=== PATIENT | female | born 1940 | race Caucasian/White ===

== ENCOUNTER → 2016-09-17 | Outpatient (CLI) | payer MEDICARE, BC ==
[~2016-09-17] VITALS: Ht 167.6 cm; Wt 88.8 kg
[~2016-09-17] MED LIST: COUMADIN 5MG5 MG/TAB PO; K-DUR 10 MEQ T10 MEQ PO; LISINOPRIL10 MG PO; POTASSIUM CHLO10 ME2 PO; TOPROL XL 50MG50 MG PO; TOPROL XL50 MG PO; ULTRAM 50MG TAB50 MG PO; WARFARIN SODIUM5 MG PO; ZESTRIL 10MG10 MG PO; ZOLOFT 100MG100 MG PO; ZOLOFT100 MG PO
[2016-09-17 09:58] VITALS: BP 150/87; PULSE 70
[2016-09-17 10:17] LABS: INR 1.2 (0.8-3.0); PROTHROMBIN TIME 13.1 SECONDS (9.7-12.8)
== END ==
LOC: COL.RAD 09:35
PROVIDERS: Internal Medicine Medical Oncology
DX: E04.1 Nontoxic single thyroid nodule (principal)

== ENCOUNTER 2017-10-23 15:38 | Inpatient (IN) | payer MEDICARE, BC ==
[~2017-10-23] VITALS: Ht 166.4 cm; Wt 90.9 kg
[2017-11-24] MEDS ORDERED: CALCIUM 600/VIT1 CAP PO (13:39)
[2017-11-24] MEDS ORDERED: ASPIRIN E.C. 8181 MG PO (13:39)
[2017-11-24] MEDS ORDERED: LASIX 40MG TABL40 MG PO (13:40)
[2017-11-24] MEDS ORDERED: ZESTRIL 20MG TA20 MG PO (13:40)
[2017-11-24] MEDS ORDERED: DULCOLAX TAB5 MG PO (13:40)
[2017-11-24] MEDS ORDERED: MULTIVITAMIN1 CTB PO (13:41)
[2017-11-24] MEDS ORDERED: NITROSTAT0.4 MG/TAB SL (13:41)
[2017-11-24] MEDS ORDERED: TOPROL XL 50MG50 MG PO (13:41)
[2017-11-24] MEDS ORDERED: K-DUR 10 MEQ T10 MEQ PO (13:42)
[2017-11-24] MEDS ORDERED: VITAMIN B-1000 MCG/T PO (13:44)
[2017-11-25] VITALS (18 sets, daily range): BP systolic 90–145; BP diastolic 32–75; PULSE 60–82; TEMP 97.6–98.1
[2017-11-26] VITALS (7 sets, daily range): BP systolic 82–128; BP diastolic 40–58; PULSE 73–92; TEMP 97.6–99
[2017-11-26] MEDS ORDERED: NORCO 325 MG-7.1 TAB PO (06:14)
[2017-11-26] MEDS ORDERED: CELEBREX 200MG200 MG PO (06:14)
[2017-11-26] MEDS ORDERED: ULTRAM 50MG TAB50 MG PO (06:15)
[2017-11-26 06:38] LABS: HEMATOCRIT 27.2 % (37.0-47.0); HEMOGLOBIN 8.1 g/dl (12.5-16.0)
[2017-11-27 00:12] VITALS: BP 104/49; PULSE 80; TEMP 98.5
[2017-11-27 03:57] VITALS: BP 104/35; PULSE 68; TEMP 98.3
[2017-11-27 06:41] LABS: HEMATOCRIT 27.6 % (37.0-47.0); HEMOGLOBIN 8.3 g/dl (12.5-16.0)
[2017-11-27 07:18] LABS: INR 1.3 (0.8-3.0); PROTHROMBIN TIME 14.3 SECONDS (9.7-12.8)
[2017-11-27 07:33] VITALS: BP 89/43; PULSE 88; TEMP 98.1
[2017-11-27 11:43] VITALS: BP 103/49; PULSE 85; TEMP 98.3
[2017-11-27 16:30] VITALS: BP 117/63; PULSE 71; TEMP 98
[2017-11-27 19:32] VITALS: BP 99/76; PULSE 74; TEMP 98.3
[2017-11-28 00:18] VITALS: BP 122/69; PULSE 71; TEMP 98.5
[2017-11-28 04:17] VITALS: BP 114/51; PULSE 68; TEMP 98.5
[2017-11-28 06:27] LABS: HEMATOCRIT 25.8 % (37.0-47.0)
[2017-11-28 07:25] VITALS: BP 116/75; PULSE 71; TEMP 97.9
== END 2017-11-28 10:15 | disposition home or self-care (01) | DRG 467 ==
LOC: JCC 11-25 07:30
PROVIDERS: Orthopaedic Surgery; Physician Assistant
PROC: 0SRD0J9 Replacement of Left Knee Joint with Synthetic Substitute, Cemented, Open Approach (ICD-10-PCS; 2017-11-25)
PROC: 0SPD0JZ Removal of Synthetic Substitute from Left Knee Joint, Open Approach (ICD-10-PCS; principal; 2017-11-25 10:00)
DX: T84.89XA Other specified complication of internal orthopedic prosthetic devices, implants and grafts, initial encounter (principal); I50.32 Chronic diastolic (congestive) heart failure; T84.84XA Pain due to internal orthopedic prosthetic devices, implants and grafts, initial encounter; I11.0 Hypertensive heart disease with heart failure; I25.10 Atherosclerotic heart disease of native coronary artery without angina pectoris; I48.2 Chronic atrial fibrillation; D64.9 Anemia, unspecified; Z87.891 Personal history of nicotine dependence; Z79.01 Long term (current) use of anticoagulants; Z85.828 Personal history of other malignant neoplasm of skin; Z96.653 Presence of artificial knee joint, bilateral
CPT/HCPCS: A4314; A9284; C1713; C1776; J0171; J1170; J1885; J2250; J2704; J3010; J7120; J7121; P9016

== ENCOUNTER → 2017-11-18 | Outpatient (CLI) | payer MEDICARE, BC | LOC: COL.LAB 10:14 | DX: Z01.812 Encounter for preprocedural laboratory examination (principal) ==

== ENCOUNTER 2018-02-24 16:04 | Inpatient (IN) | payer MEDICARE, BC ==
[~2018-02-24] VITALS: Ht 165.1 cm; Wt 87.4 kg
[~2018-02-24 16:04] MED LIST changes: +ASPIRIN E.C. 8181 MG PO; +CALCIUM 600/VIT1 CAP PO; +CELEBREX 200MG200 MG PO; +DULCOLAX TAB5 MG PO; +LASIX 40MG TABL40 MG PO; +MULTIVITAMIN1 CTB PO; +NITROSTAT0.4 MG/TAB SL; +NORCO 325 MG-7.1 TAB PO; +VITAMIN B-1000 MCG/T PO; +ZESTRIL 20MG TA20 MG PO
[2018-04-28] VITALS (9 sets, daily range): BP systolic 65–127; BP diastolic 35–80; PULSE 53–79; TEMP 97.4–98.4
[2018-04-28 07:36] LABS: INR 1.1 (0.8-3.0); PROTHROMBIN TIME 12.6 SECONDS (9.7-12.8)
[2018-04-29] VITALS (7 sets, daily range): BP systolic 76–137; BP diastolic 36–96; PULSE 68–96; TEMP 97.8–99.9
[2018-04-29] MEDS ORDERED: ULTRAM 50MG TAB50 MG PO (05:45)
[2018-04-29] MEDS ORDERED: CELEBREX 200MG200 MG PO (05:45)
[2018-04-29] MEDS ORDERED: NORCO 325 MG-7.1 TAB PO (05:45)
[2018-04-29 07:24] LABS: HEMATOCRIT 26.8 % (37.0-47.0); HEMOGLOBIN 8.1 g/dl (12.5-16.0)
[2018-04-30 03:07] VITALS: BP 98/41; PULSE 74; TEMP 98.3
[2018-04-30 07:49] VITALS: BP 94/43; PULSE 76; TEMP 97.9
[2018-04-30 08:38] LABS: HEMATOCRIT 26.5 % (37.0-47.0); HEMOGLOBIN 8.2 g/dl (12.5-16.0)
[2018-04-30 08:46] LABS: INR 1.5 (0.8-3.0); PROTHROMBIN TIME 16.6 SECONDS (9.7-12.8)
[2018-04-30 11:17] LABS: BASO % 0.2 % (0.0-2.0); EOS # 0.1 (0.0-0.7); EOS % 1.2 % (0-4.0); GRAN # 4.8 (1.4-6.5); GRAN % 84.3 % (42.2-75.2); LYMPH # 0.3 (1.2-3.4); LYMPH % 4.7 % (20.0-51.0); MEAN CELL VOLUME 78 fl (80.0-100.0); MEAN CORPUSCULAR HGB CONC 31 g/dl (33.0-37.0); MEAN PLATELET VOLUME 11.6 fl (7.4-10.4); MONO # 0.5 (0.1-0.6); MONO % 8.9 % (1.7-9.3); PLATELET COUNT 91 K/mm3 (130-400); RED BLOOD COUNT 3.03 M/mm3 (4.10-5.30); REDCELL DISTRIBUTION WIDTH-CV 17.3 % (11.5-14.5)
[2018-04-30 11:19] VITALS: BP 91/40
[2018-04-30 11:24] LABS: HEMATOCRIT 23.6 % (37.0-47.0); HEMOGLOBIN 7.4 g/dl (12.5-16.0); MEAN CORPUSCULAR HEMOGLOBIN 24 pg (27.0-31.0)
[2018-04-30 11:44] LABS: ALBUMIN 3.4 gm/dL (3.5-5.0); BILIRUBIN UNCONJUGATED 0.4 mg/dL (0.0-1.1); BILIRUBIN,DIRECT 0.3 mg/dL (0.0-0.4); BILIRUBIN,TOTAL 0.7 mg/dL (0.0-1.0); CALCIUM 8.8 mg/dL (8.4-10.2); CREATININE, serum 1.66 mg/dL (0.52-1.25); POTASSIUM 4.6 mmol/L (3.4-5.0)
[2018-04-30 16:47] VITALS: BP 105/44; PULSE 95; TEMP 98.7
[2018-04-30 16:49] LABS: TROPONIN-I < 0.012 ng/mL (0.000-0.034)
[2018-04-30 20:20] VITALS: BP 98/51; PULSE 85; TEMP 98.6
[2018-04-30 23:41] VITALS: BP 96/53; PULSE 80; TEMP 98.6
[2018-05-01 03:36] VITALS: BP 113/50; PULSE 83; TEMP 98.5
[2018-05-01 07:18] LABS: BASO % 0.2 % (0.0-2.0); EOS # 0.2 (0.0-0.7); EOS % 3.3 % (0-4.0); GRAN # 3.9 (1.4-6.5); GRAN % 76.1 % (42.2-75.2); LYMPH # 0.5 (1.2-3.4); MEAN CELL VOLUME 78 fl (80.0-100.0); MEAN CORPUSCULAR HGB CONC 31 g/dl (33.0-37.0); MEAN PLATELET VOLUME 11.7 fl (7.4-10.4); MONO # 0.6 (0.1-0.6); MONO % 10.8 % (1.7-9.3); PLATELET COUNT 105 K/mm3 (130-400); REDCELL DISTRIBUTION WIDTH-CV 17.9 % (11.5-14.5)
[2018-05-01 07:21] VITALS: BP 102/48; PULSE 82; TEMP 98.8
[2018-05-01 07:25] LABS: HEMATOCRIT 24.2 % (37.0-47.0); HEMOGLOBIN 7.6 g/dl (12.5-16.0); MEAN CORPUSCULAR HEMOGLOBIN 25 pg (27.0-31.0)
[2018-05-01 07:27] LABS: ANION GAP 6 mmol/L (7-16); BLOOD UREA NITROGEN 41 mg/dL (7-17); CALCIUM 8.8 mg/dL (8.4-10.2); CARBON DIOXIDE 26 mmol/L (22-30); CHLORIDE 105 mmol/L (98-107); CREATININE, serum 1.52 mg/dL (0.52-1.25); GLUCOSE 105 mg/dL (74-106); POTASSIUM 4.7 mmol/L (3.4-5.0); SODIUM 137 mmol/L (137-145)
[2018-05-01 07:45] LABS: TROPONIN-I < 0.012 ng/mL (0.000-0.034)
[2018-05-01 08:31] LABS: INR 1.8 (0.8-3.0)
[2018-05-01 12:03] VITALS: BP 99/47; PULSE 82; TEMP 98.1
[2018-05-01 13:28] LABS: IRON,SERUM 12 ug/dL (35-150)
[2018-05-01 13:37] LABS: TOTAL IRON BINDING CAPACITY 278 ug/dL (265-497)
[2018-05-01 14:03] LABS: FERRITIN 71 ng/mL (11-264)
== END 2018-05-01 13:03 | disposition swing bed (61) | DRG 470 ==
LOC: JCC 04-28 06:38
PROVIDERS: Hospitalist; Orthopaedic Surgery; Physician Assistant
PROC: 0SRB04A Replacement of Left Hip Joint with Ceramic on Polyethylene Synthetic Substitute, Uncemented, Open Approach (ICD-10-PCS; principal; 2018-04-28 10:00)
DX: M16.12 Unilateral primary osteoarthritis, left hip (principal); I48.1 Persistent atrial fibrillation; Z87.891 Personal history of nicotine dependence; Z79.01 Long term (current) use of anticoagulants; I95.89 Other hypotension; I11.0 Hypertensive heart disease with heart failure; I50.9 Heart failure, unspecified; D69.6 Thrombocytopenia, unspecified
CPT/HCPCS: 99223; 99231-AI; A4314; A9284; C1713; C1776; J0690; J1885; J2250; J2704; J3010; J7040; J7121

== ENCOUNTER → 2018-04-21 | Outpatient (CLI) | payer MEDICARE, BC | LOC: COL.LAB 11:55 | DX: Z01.812 Encounter for preprocedural laboratory examination (principal); M16.12 Unilateral primary osteoarthritis, left hip ==

== ENCOUNTER 2018-05-04 14:02 | Inpatient (IN) | payer MEDICARE, BC ==
[~2018-05-04] VITALS: Ht 167.6 cm; Wt 89.3 kg
[2018-05-04 16:31] VITALS: BP 124/59; PULSE 87; TEMP 98.8
[2018-05-04 17:32] LABS: BASO % 0.4 % (0.0-2.0); EOS # 0.2 (0.0-0.7); EOS % 3.2 % (0-4.0); GRAN # 3.4 (1.4-6.5); GRAN % 71.6 % (42.2-75.2); LYMPH # 0.5 (1.2-3.4); LYMPH % 10.8 % (20.0-51.0); MEAN CELL VOLUME 80 fl (80.0-100.0); MEAN CORPUSCULAR HGB CONC 31 g/dl (33.0-37.0); MEAN PLATELET VOLUME 10.8 fl (7.4-10.4); MONO # 0.6 (0.1-0.6); MONO % 12.3 % (1.7-9.3); PLATELET COUNT 161 K/mm3 (130-400); RED BLOOD COUNT 3.12 M/mm3 (4.10-5.30); REDCELL DISTRIBUTION WIDTH-CV 17.6 % (11.5-14.5)
[2018-05-04 17:43] LABS: ALBUMIN 3.5 gm/dL (3.5-5.0); CALCIUM 9.2 mg/dL (8.4-10.2); CREATININE, serum 1.09 mg/dL (0.52-1.25); POTASSIUM 5.2 mmol/L (3.4-5.0); TOTAL PROTEIN 6.2 gm/dL (6.4-8.2)
[2018-05-04 17:44] LABS: HEMATOCRIT 24.8 % (37.0-47.0); HEMOGLOBIN 7.7 g/dl (12.5-16.0); MEAN CORPUSCULAR HEMOGLOBIN 25 pg (27.0-31.0)
[2018-05-04 17:50] LABS: PRE ALBUMIN 10.1 mg/dL (17.6-36.0)
[2018-05-04 17:51] LABS: PROTHROMBIN TIME 45.9 SECONDS (9.7-12.8)
[2018-05-04 18:55] LABS: COLLECTION METHOD CATHETER
[2018-05-04 19:07] LABS: MUCOUS Present /lpf; PH 5 (5-8); SQUAMOUS EPITHELIAL 0-2 /hpf; URINE APPEARANCE Clear; URINE BACTERIA Rare /hpf; URINE BILIRUBIN Negative (NEGATIVE); URINE BLOOD 1+ (NEGATIVE); URINE COLOR Yellow; URINE GLUCOSE Negative (NEGATIVE); URINE KETONE Negative (NEGATIVE); URINE LEUKOCYTE ESTERASE Trace (NEGATIVE); URINE NITRATE Negative (NEGATIVE); URINE PROTEIN(semi-quant) Negative (NEGATIVE); URINE UROBILINOGEN Negative (NEGATIVE)
[2018-05-04 19:45] VITALS: BP 113/46; PULSE 89; TEMP 98.3
[2018-05-05] VITALS (16 sets, daily range): BP systolic 96–136; BP diastolic 48–78; PULSE 68–107; TEMP 97.4–98.9
[2018-05-05 09:09] LABS: HEMATOCRIT 25.8 % (37.0-47.0); HEMOGLOBIN 8.1 g/dl (12.5-16.0); MEAN CELL VOLUME 78 fl (80.0-100.0); MEAN CORPUSCULAR HEMOGLOBIN 25 pg (27.0-31.0); MEAN CORPUSCULAR HGB CONC 31 g/dl (33.0-37.0); MEAN PLATELET VOLUME 11.2 fl (7.4-10.4); PLATELET COUNT 149 K/mm3 (130-400); REDCELL DISTRIBUTION WIDTH-CV 17.8 % (11.5-14.5)
[2018-05-05 09:12] LABS: POTASSIUM 4.1 mmol/L (3.4-5.0)
[2018-05-05 09:52] LABS: PROTHROMBIN TIME 22.3 SECONDS (9.7-12.8)
[2018-05-05 10:12] LABS: BAND 2 % (0-10); BASOPHIL 1 % (0-2); EOSINOPHIL 4 % (0-4); LYMPHOCYTE 16 % (20.0-51.0); NEUTROPHILS 68 % (42.0-75.2); PLATELET ESTIMATE DECREASED (NORMAL)
[2018-05-05 10:13] LABS: ANISOCYTOSIS 1+
[2018-05-05 10:14] LABS: OVALOCYTES 1+
[2018-05-06] VITALS (15 sets, daily range): BP systolic 94–144; BP diastolic 49–86; PULSE 68–93; TEMP 97.6–98.7
[2018-05-06 07:22] LABS: MEAN CELL VOLUME 79 fl (80.0-100.0); MEAN CORPUSCULAR HGB CONC 32 g/dl (33.0-37.0); MEAN PLATELET VOLUME 10.4 fl (7.4-10.4); PLATELET COUNT 182 K/mm3 (130-400); RED BLOOD COUNT 3.68 M/mm3 (4.10-5.30); REDCELL DISTRIBUTION WIDTH-CV 17.5 % (11.5-14.5)
[2018-05-06 07:23] LABS: HEMATOCRIT 29.2 % (37.0-47.0); HEMOGLOBIN 9.3 g/dl (12.5-16.0); MEAN CORPUSCULAR HEMOGLOBIN 25 pg (27.0-31.0)
[2018-05-06 07:31] LABS: INR 1.3 (0.8-3.0); PROTHROMBIN TIME 14.7 SECONDS (9.7-12.8)
[2018-05-06 07:48] LABS: CALCIUM 8.8 mg/dL (8.4-10.2); CREATININE, serum 1.06 mg/dL (0.52-1.25); POTASSIUM 4.6 mmol/L (3.4-5.0)
[2018-05-06 08:06] LABS: ANISOCYTOSIS 1+; BAND 1 % (0-10); EOSINOPHIL 6 % (0-4); HYPOCHROMIA 1+; LYMPHOCYTE 14 % (20.0-51.0); NEUTROPHILS 76 % (42.0-75.2); PLATELET ESTIMATE NORMAL (NORMAL)
[2018-05-07 01:58] VITALS: BP 109/51; PULSE 77; TEMP 98.5
[2018-05-07 05:42] VITALS: BP 102/68; PULSE 87; TEMP 98.6
[2018-05-07 07:50] LABS: MEAN CELL VOLUME 82 fl (80.0-100.0); MEAN CORPUSCULAR HGB CONC 31 g/dl (33.0-37.0); MEAN PLATELET VOLUME 10.5 fl (7.4-10.4); PLATELET COUNT 158 K/mm3 (130-400); RED BLOOD COUNT 3.05 M/mm3 (4.10-5.30); REDCELL DISTRIBUTION WIDTH-CV 17.6 % (11.5-14.5)
[2018-05-07 07:55] LABS: HEMATOCRIT 24.9 % (37.0-47.0); HEMOGLOBIN 7.7 g/dl (12.5-16.0); MEAN CORPUSCULAR HEMOGLOBIN 25 pg (27.0-31.0)
[2018-05-07 07:56] VITALS: BP 99/47; PULSE 76; TEMP 98.7
[2018-05-07 07:56] LABS: INR 1.3 (0.8-3.0); PROTHROMBIN TIME 14.8 SECONDS (9.7-12.8)
[2018-05-07 08:07] LABS: CREATININE, serum 1.11 mg/dL (0.52-1.25); POTASSIUM 4.2 mmol/L (3.4-5.0)
[2018-05-07 09:21] LABS: ANISOCYTOSIS 2+; BAND 18 % (0-10); EOSINOPHIL 4 % (0-4); LYMPHOCYTE 5 % (20.0-51.0); NEUTROPHILS 70 % (42.0-75.2); PLATELET ESTIMATE NORMAL (NORMAL)
[2018-05-07 09:22] LABS: HYPOCHROMIA 1+
[2018-05-07 11:50] VITALS: BP 97/53; PULSE 80; TEMP 98.7
[2018-05-07 16:58] VITALS: BP 90/53; PULSE 90; TEMP 98
[2018-05-07 20:23] VITALS: BP 112/54; PULSE 84; TEMP 98.2
[2018-05-08 00:28] VITALS: BP 105/60; PULSE 92; TEMP 98
[2018-05-08 03:09] VITALS: BP 105/47; PULSE 85; TEMP 98.2
[2018-05-08 05:50] LABS: BASO % 0.2 % (0.0-2.0); EOS # 0.2 (0.0-0.7); EOS % 3.7 % (0-4.0); GRAN # 4.3 (1.4-6.5); GRAN % 78.7 % (42.2-75.2); LYMPH # 0.4 (1.2-3.4); LYMPH % 6.8 % (20.0-51.0); MEAN CELL VOLUME 81 fl (80.0-100.0); MEAN CORPUSCULAR HGB CONC 31 g/dl (33.0-37.0); MEAN PLATELET VOLUME 10.6 fl (7.4-10.4); MONO # 0.5 (0.1-0.6); MONO % 9.3 % (1.7-9.3); PLATELET COUNT 143 K/mm3 (130-400); RED BLOOD COUNT 2.89 M/mm3 (4.10-5.30); REDCELL DISTRIBUTION WIDTH-CV 17.7 % (11.5-14.5)
[2018-05-08 05:57] LABS: HEMATOCRIT 23.4 % (37.0-47.0); HEMOGLOBIN 7.2 g/dl (12.5-16.0); MEAN CORPUSCULAR HEMOGLOBIN 25 pg (27.0-31.0)
[2018-05-08 05:59] LABS: CALCIUM 8.1 mg/dL (8.4-10.2); CREATININE, serum 1.09 mg/dL (0.52-1.25); POTASSIUM 4.6 mmol/L (3.4-5.0)
[2018-05-08 06:00] LABS: INR 1.3 (0.8-3.0); PROTHROMBIN TIME 14.7 SECONDS (9.7-12.8)
[2018-05-08 08:19] VITALS: BP 115/70; PULSE 95; TEMP 98.2
[2018-05-08] MEDS ORDERED: FERROUS SU325 MG/TAB PO (09:12)
[2018-05-08 09:55] VITALS: BP 115/70; PULSE 95; TEMP 98.2
== END 2018-05-08 10:05 | disposition swing bed (61) | DRG 467 ==
LOC: SURG 14:02
PROVIDERS: Orthopaedic Surgery; Physician Assistant
PROC: 0SPB0JZ Removal of Synthetic Substitute from Left Hip Joint, Open Approach (ICD-10-PCS; 2018-05-06)
PROC: 0SRB0JA Replacement of Left Hip Joint with Synthetic Substitute, Uncemented, Open Approach (ICD-10-PCS; principal; 2018-05-06 10:15)
DX: S72.002A Fracture of unspecified part of neck of left femur, initial encounter for closed fracture (principal); M97.02XA Periprosthetic fracture around internal prosthetic left hip joint, initial encounter; I50.32 Chronic diastolic (congestive) heart failure; M48.54XA Collapsed vertebra, not elsewhere classified, thoracic region, initial encounter for fracture; Z87.891 Personal history of nicotine dependence; I11.0 Hypertensive heart disease with heart failure; I48.91 Unspecified atrial fibrillation; Z79.01 Long term (current) use of anticoagulants; I25.10 Atherosclerotic heart disease of native coronary artery without angina pectoris; D50.0 Iron deficiency anemia secondary to blood loss (chronic); D38.1 Neoplasm of uncertain behavior of trachea, bronchus and lung; Z98.84 Bariatric surgery status; I08.3 Combined rheumatic disorders of mitral, aortic and tricuspid valves
CPT/HCPCS: 99222-AI; 99232-AI; 99233-AI; 99239; A9284; C1776; J0690; J1100; J1885; J1940; J2250; J2270; J2370; J2405; J2704; J3010; P9016; Q9967

== ENCOUNTER → 2019-12-09 | Outpatient (CLI) | payer MEDICARE, BC ==
[~2019-12-09] VITALS: Ht 167.6 cm; Wt 80.4 kg
[2019-12-09] VITALS (10 sets, daily range): BP systolic 128–178; BP diastolic 80–94; PULSE 63–90
[~2019-12-09] MED LIST changes: +FERROUS SU325 MG/TAB PO
[2019-12-09 12:37] LABS: INR 1.5 (0.8-3.0); PROTHROMBIN TIME 16.7 SECONDS (9.7-12.8)
--- NOTE | 2019-12-09 13:00 | NUR ---
PT TAKEN TO CT AND PLACED ON BED. MONITORING EQUIPMENT PLACED. IMAGES TAKEN AND SENT
== END ==
LOC: COL.RAD 11:52
PROVIDERS: Radiology Diagnostic Radiology
DX: C34.11 Malignant neoplasm of upper lobe, right bronchus or lung (principal); M89.9 Disorder of bone, unspecified
CPT/HCPCS: J2250; J3010

== ENCOUNTER 2020-06-21 16:30 | Inpatient (IN) | payer MEDICARE, BC ==
[2020-06-21] VITALS (170 sets, daily range): BP systolic 132–156; BP diastolic 63–101; PULSE 80–98; TEMP 98.1–98.4; O2SAT 86–100
[~2020-06-21] VITALS: Ht 160 cm; Wt 81.1 kg
--- NOTE | 2020-06-21 16:00 | NUR ---
RECIEVED REPORT FROM CHITRA ROONEY AT [facility]. AWAITING ARRIVAL OF PT TO ICU 2.
--- NOTE | 2020-06-21 16:15 | NUR ---
PT ARRIVES VIA EMS ON STRETCHER. PT ON 8L VIA OXYMASK. PT ASSISTED TO ICU BED AND PLACED ON BEDSIDE MUTUAL FUND ANALYST. NOTED STRIDOR NOISES FROM PT. VSS. CALL LIGHT WITHIN REACH AND EDUCATION GIVEN, NODS HEAD IN UNDERSTANDING. PT REQUESTS TO USE BEDPAN, ABLE TO LIFT HIPS ON AND OFF.
--- NOTE | 2020-06-21 16:30 | NUR ---
DR STEEL AT BEDSIDE FOR ASSESSMENT. NEW ORDERS RECEIVED.
--- NOTE | 2020-06-21 16:40 | NUR ---
RT AT BEDSIDE ADJUSTING O2 TO 5L VIA OXYMASK.
[2020-06-21 17:13] LABS: BASO % 0.3 % (0.0-2.0); EOS % 0.4 % (0-4.0); GRAN # 7.9 (1.4-6.5); GRAN % 87.3 % (42.2-75.2); HEMATOCRIT 34.8 % (37.0-47.0); HEMOGLOBIN 10.7 g/dl (12.5-16.0); LYMPH # 0.5 (1.2-3.4); LYMPH % 5.5 % (20.0-51.0); MEAN CELL VOLUME 74 fl (80.0-100.0); MEAN CORPUSCULAR HEMOGLOBIN 23 pg (27.0-31.0); MEAN CORPUSCULAR HGB CONC 31 g/dl (33.0-37.0); MONO # 0.6 (0.1-0.6); MONO % 6.3 % (1.7-9.3); PLATELET COUNT 163 K/mm3 (130-400); RED BLOOD COUNT 4.69 M/mm3 (4.10-5.30); REDCELL DISTRIBUTION WIDTH-CV 15.9 % (11.5-14.5)
[2020-06-21 17:14] LABS: CALCIUM 8.7 mg/dL (8.4-10.2); CREATININE, serum 0.88 (0.52-1.25); INR 1.2 (0.8-3.0); MAGNESIUM 1.8 mg/dL (1.6-2.3); POTASSIUM 4.2 mmol/L (3.4-5.0); PROTHROMBIN TIME 13.1 SECONDS (9.7-12.8)
--- NOTE | 2020-06-21 20:00 | NUR ---
Assessment complete. Pt is AXO X3, states she has pain to her incision. Breathing is labored while interacting with this nurse on 4L via oxymask. Incision site to neck is CDI and MASTER COOK. Pt is watching TV and denies needs. Call light within reach.
--- NOTE | 2020-06-21 22:00 | NUR ---
Called in room by pt at 0 stating she felt nauseaus and she was having pain to her incision. Upon returning to room at 2209 pt was found to be in tripod position with worsening stridor. O2 bumped to 6L via oxymask. Called CHITRA Rivers, to come to bedside to lay eyes on the pt. Zofran and morphine administered. CHITRA Rivers, called RC Bowen, to have her come to evaluate the pt. Patric Carbajal CRNA, per RC Bowen, request for intubation. Pt is agreeable for intubation.
[2020-06-22] VITALS (790 sets, daily range): BP systolic 83–135; BP diastolic 41–87; PULSE 64–88; TEMP 98.3–99; O2SAT 89–100
--- NOTE | 2020-06-22 | NUR ---
This RN called by CHITRA Chambers, at 2212 for assistance at the bedside. Upon entering room, patient in tripod position in bed, clearly in respiratory distress with audible stridor heard from the door. HR ranging 130-140s, with elevated BPs 160s/100s; patient oxygen saturation in 90s despite increased effort of breathing and stridor. Reyes reports patient called at approximately 2200 reporting nausea and abdominal pain. PRN zofran and morphine were administered, however, patient quickly became tachypneic and anxious. Patient had been wearing 4L via oxymask prior to this episode; oxygen titrated to 6L with saturations maintaining mid-high 90s. This RN notified RC Bowen, at 2217, who ordered a STAT one time dose of 0.5mg IV ativan to be administered. Nasir LEY, and RC Bowen, arrived at the bedside within 5-10 minutes, and after assessing the patient, decided patient should be intubated. Anesthesia was contacted by Reyes at approximately 2221. This RN received verbal order from Jessi to administer 2mg of IV Versed STAT at 2230. Anesthesiologist, Yash Crabajal, at the bedside by 2234. Patient intubated with a 7.5 ET tube and without further medication administration at 2245. ET tube measuring 21cm at the lip. Attempted to place 14Fr OG tube three times before a 12Fr NG placed in the right nare, measuring 64cm from nare to stopcock. Bowel sounds auscultated and a chest xray was obtained to confirm placement of both ET and NG tubes. A 16Fr mitchell catheter placed; balloon inflated with 10mL of saline. Per Jessi's request, this RN contacted [facility] for sedation and restraint orders, which were obtained from Dr. Marin. Propofol and Fentanyl initiated according to orders. Vital signs following intubation are as follows: BP 161/98, P 94, R 20, O2 95% on 60% FiO2. Patient tolerating ventilator well. Will continue to monitor.
[2020-06-22 00:38] LABS: ARTERIAL BLD GAS O2 SATURATION 99.4 % (92-100); ARTERIAL BLD GAS TCO2 CT 24.2; ARTERIAL BLOOD GAS HCO3 22.9 meq/L (22-26); ARTERIAL BLOOD GAS PCO2 44.3 mmHg (35-45); ARTERIAL BLOOD GAS PO2 201.2 mmHg (80-100); ARTERIAL BLOOD GAS pH 7.33 (7.35-7.45)
--- NOTE | 2020-06-22 00:50 | NUR ---
Updated patient's son, Bryan.
--- NOTE | 2020-06-22 02:03 | NUR ---
AT 2140 ON 06/21/20 WAS CALLED BY RN HE WAS IN PTS ROOM SHE WAS STATING IT WAS HARDER TO BREATH. PT HAD RECENTLY HAD A THYROIDECTOMY. PT HAD A SLIGHT STRIDOURS SOUND AT THE BEGINNING OF SHIFT AT 1900. HOWEVER, UPON ENTERING THE UNIT I COULD HEAR THE PATIENT BREATHING LOUDER. HER STRIDOR HAD WORSENED AND SHE FELT LIKE EVERYTHING WAS CLOSING UP. CALLED GAME ATTENDANT WHO AGREED THAT PT NEEDED TO BE INTUBATED HER CONDITION COULD AND WOULD DETERIORATE IF LEFT UNTREATED AND NOT INTUBATED. PT WAS INTUBATED AT 2244 WITH A 7.5 ETT 22@ LIP. COLOR CHANGE ON THE CO2 DETECTOR, AND BILATERAL BREATH SOUNDS WELL EQUAL CHEST RISE. TUBE WAS SECURED AND PT WAS PLACED ON A VENTILATOR WITH SETTINGS OF 420, +5, 18, 60% UPON ABG RESULTS AFTER AN HOUR SETTINGS WERE DISCUSSED WITH CARLI WILLIS. DR WILLIS AGREED TO CHANGE PATIENTS RATE TO 20 AND DECREASED FI02 TO 40% AND REPEATE AN AM ABG AT 0500. PT IS ON CURRENT SETTINGS OF 420, 20, 40% AND +5. NO DISTRESS IS NOW NOTED AND PT IS RESTING COMFORTABLY WHILE ON THE VENTILATOR. WILL CONTINUE TO ASSESS AND MONITOR PATIENT.
[2020-06-22] MEDS ORDERED: GILOTRIF PO (03:44)
[2020-06-22] MEDS ORDERED: BUSPAR5 MG PO (03:45)
[2020-06-22] MEDS ORDERED: ZOLOFT 25MG25 MG PO (03:45)
[2020-06-22] MEDS ORDERED: COUMADIN 77.5 MG/TAB PO (03:46)
[2020-06-22] MEDS ORDERED: B-121000 MCG PO (03:46)
[2020-06-22] MEDS ORDERED: FOLIC ACID 11 MG/TA1 PO (03:48)
[2020-06-22] MEDS ORDERED: APRESOLINE 10MG10 MG PO (03:48)
[2020-06-22] MEDS ORDERED: DECADRON 4MG TAB4 MG PO (03:48)
[2020-06-22] MEDS ORDERED: COMPAZINE 110 MG/TAB PO (03:49)
[2020-06-22] MEDS ORDERED: OSCAL 500 TAB500 MG PO (03:50)
[2020-06-22] MEDS ORDERED: VITAMIN D 400400 IU PO (03:50)
--- NOTE | 2020-06-22 05:39 | NUR ---
Patient intubated within the last 8 hours. No sedation vacation performed at this time.
[2020-06-22 05:54] LABS: BASO % 0.2 % (0.0-2.0); GRAN # 4.9 (1.4-6.5); GRAN % 88.5 % (42.2-75.2); LYMPH # 0.3 (1.2-3.4); LYMPH % 4.9 % (20.0-51.0); MEAN CELL VOLUME 76 fl (80.0-100.0); MEAN CORPUSCULAR HGB CONC 30 g/dl (33.0-37.0); MEAN PLATELET VOLUME 11.3 fl (7.4-10.4); MONO # 0.3 (0.1-0.6); PLATELET COUNT 131 K/mm3 (130-400); RED BLOOD COUNT 4.23 M/mm3 (4.10-5.30); REDCELL DISTRIBUTION WIDTH-CV 16.1 % (11.5-14.5)
[2020-06-22 05:54] LABS: ARTERIAL BLD GAS O2 SATURATION 99.1 % (92-100); ARTERIAL BLD GAS TCO2 CT 20.9; ARTERIAL BLOOD GAS BASE EXCESS -4.6 (-2-2); ARTERIAL BLOOD GAS HCO3 19.9 meq/L (22-26); ARTERIAL BLOOD GAS PCO2 34.3 mmHg (35-45); ARTERIAL BLOOD GAS PO2 138.4 mmHg (80-100); ARTERIAL BLOOD GAS pH 7.38 (7.35-7.45)
[2020-06-22 06:00] LABS: ALBUMIN 3.7 gm/dL (3.5-5.0); CALCIUM 8.1 mg/dL (8.4-10.2); CREATININE, serum 0.9 (0.52-1.25); PHOSPHOROUS 4.2 mg/dL (2.5-4.5); POTASSIUM 4.5 mmol/L (3.4-5.0)
--- NOTE | 2020-06-22 06:13 | NUR ---
PT HAS NOT BEEN INTUBATED FOR MORE THAN 24 HOURS. PT IS ON DOCUMENTED SETTINGS LYN WELL WITH NO DISTRESS NOTED AT THIS TIME.
[2020-06-22 06:16] LABS: HEMATOCRIT 32.1 % (37.0-47.0); HEMOGLOBIN 9.5 g/dl (12.5-16.0); MEAN CORPUSCULAR HEMOGLOBIN 22 pg (27.0-31.0)
--- NOTE | 2020-06-22 10:26 | NUR ---
Phone call placed to charge nurse. Pt has listed as a home med her AFATANIB (GLIOTRIF). This is an antineoplastic that will be present in urine and feces for 8 days following administration. Med reconciliation does not give a last date of administration. For safety reason, this information needs to be available to staff caring for pt.
--- NOTE | 2020-06-22 10:56 | NUR ---
The patient is intubated. Mica Layer contacted the patient's son, Bryan Coelho #[phone] to complete intake. The patient lives in [place] with her , Thaddeus. Bryan reports that Thaddeus has dementia. The patient has cane (and may have a walker, Bryna was not sure) and is independent with ADLs. The patient's PCP is Ankit Grover and [facility] [place]. The patient does not have advanced directives in the EMR but believes they are complete. The patient has two adult children, Bryan and Kendal Weiss (lives in [place], [place]). The plan is for the patient to return home. YELENA discussed the possibility of the patient needing post acute rehab and he would like the patient to go to [facility] if that is needed. He understand the family will provide transporation. YELENA contacted the patient's PCP office and [facility] to inquire about [facility] and [facility] has that paperwork on file. YELENA will monitor to ensure the safest discharge disposition.
--- NOTE | 2020-06-22 12:32 | NUR ---
PT GOING TO OR FOR TRACH PLACEMENT. IV'S STOPPED AT THIS TIME. PT TAKEN OFF VENT AND BAGGED BY ANESTHESIA. WILL AWAIT UPDATES.
--- NOTE | 2020-06-22 12:45 | NUR ---
Chaplain nava for patient while standing outside the door.
--- NOTE | 2020-06-22 13:15 | NUR ---
PT BACK FROM OR WITH 6 CUFFED SHILEY. PT PLACED ON VENT PER RT. PT OPENS EYE TO VOICE AND FOLLOWS COMMANDS. PT PLACED BACK ON IVF AND SEDATION. ORAL CARE GIVEN. PT UPDATED ON PLAN.
--- NOTE | 2020-06-22 15:49 | NUR ---
PT HYPOTENSIVE. PT OPENS EYE TO VOICE. PT ABLE TO YES/NO QUESTIONS. PROPOFOL PLACED ON STAND BY. PT STATES NO PAIN AT THIS TIME. WILL CONTINUE TO MONITOR.
--- NOTE | 2020-06-22 16:02 | NUR ---
LIYA RN WITH CARDIOLOGY NOTIFIED OF PT'S HYPOENTION. BP BACK UP TO 90'S AFTER PROPOFOL STOPPED. ORDER RECEIVED FROM TO HOLD METOPROLOL FOR SBP < 95. WILL CONTINUE TO MONITOR,
--- NOTE | 2020-06-22 17:00 | NUR ---
PT OPENS EYES TO VOICE. PT ABLE TO FOLLOW ALL COMMANDS. PT ANSWERS YES/NO QUESTIONS. PT ABLE TO HELP TURN AND POSITION. PT A LITTLE UNCOMFOTABLE, SO PROPOFOL RESTARTED AT LOW RATE. WILL CONTINUE TO MONITOR BP.
[2020-06-22 19:07] LABS: ALBUMIN 3.4 gm/dL (3.5-5.0); CALCIUM 7.9 mg/dL (8.4-10.2); PHOSPHOROUS 4.4 mg/dL (2.5-4.5)
--- NOTE | 2020-06-22 22:19 | NUR ---
Received report from CHITRA Mondragon at 1900. During report, patient's requested 1600 labs resulted. According to Alanna, Dr. Pena had requested he be notified of results. Alanna attempted to call Dr. Pean with this RN present at 1915 with no answer. She left a message requesting call back. This RN made a second attempt to notify Dr. Pena at 2019, again with no answer. A second message was left requesting call back. No call back received yet at this time.
[2020-06-23] VITALS (1426 sets, daily range): BP systolic 104–148; BP diastolic 53–81; PULSE 75–101; TEMP 98.4–99.8; O2SAT 90–100
--- NOTE | 2020-06-23 02:09 | NUR ---
size 14 greenlandic sterile sx to #6 Shiley for small amount of blood around new incision site Pt tolerated well Sutures in place and secure
--- NOTE | 2020-06-23 04:00 | NUR ---
Patient has been lightly sleeping throughout majority of shift. She is alert, opens eyes spontaneously, and follows all verbal commands. Patient denies presence of any pain or discomfort when prompted. Vitals have remained within normal limits. She has been able to communicate with staff using pen and paper. Denies further needs at this time.
--- NOTE | 2020-06-23 04:36 | NUR ---
pt with #6 Shiley cuff inflated resting comfortably sutures in place trach tie secure
[2020-06-23 05:27] LABS: MEAN CELL VOLUME 74 fl (80.0-100.0); MEAN CORPUSCULAR HGB CONC 30 g/dl (33.0-37.0); MEAN PLATELET VOLUME 11.4 fl (7.4-10.4); PLATELET COUNT 105 K/mm3 (130-400); RED BLOOD COUNT 3.97 M/mm3 (4.10-5.30); REDCELL DISTRIBUTION WIDTH-CV 16.2 % (11.5-14.5)
[2020-06-23 05:29] LABS: ARTERIAL BLOOD GAS HCO3 20.2 meq/L (22-26); ARTERIAL BLOOD GAS PCO2 35.4 mmHg (35-45); ARTERIAL BLOOD GAS pH 7.38 (7.35-7.45)
[2020-06-23 05:30] LABS: ARTERIAL BLD GAS O2 SATURATION 98.6 % (92-100); ARTERIAL BLOOD GAS BASE EXCESS -4.4 (-2-2)
[2020-06-23 05:37] LABS: ALBUMIN 3.4 gm/dL (3.5-5.0); CREATININE, serum 1.05 (0.52-1.25); MAGNESIUM 1.9 mg/dL (1.6-2.3); PHOSPHOROUS 4.2 mg/dL (2.5-4.5); POTASSIUM 4.2 mmol/L (3.4-5.0)
[2020-06-23 05:45] LABS: HEMATOCRIT 29.3 % (37.0-47.0); HEMOGLOBIN 8.9 g/dl (12.5-16.0); MEAN CORPUSCULAR HEMOGLOBIN 22 pg (27.0-31.0)
--- NOTE | 2020-06-23 05:47 | NUR ---
PT AWAKE AND ALERT #6 SHILEY CUFF INFLATED PS 5 PEEP 5 30% FIO2 PT IS COMFORTABLE AND IN NO DISTRESS AT THIS TIME RT AND NURSING TO CONTINUE TO MONITOR AND SUPPORT PATIENT DURING TRIAL NEEDED PT SHAKES HEAD WHEN INSTRUCTED TO LET US KNOW IF SHE HAS ANY NEEDS
[2020-06-23 05:50] LABS: LYMPHOCYTE 4 % (20.0-51.0); MICROCYTOSIS 1+; NEUTROPHILS 95 % (42.0-75.2); PLATELET ESTIMATE DECREASED (NORMAL)
[2020-06-23 05:51] LABS: ANISOCYTOSIS 1+; HYPOCHROMIA 3+
[2020-06-23 05:53] LABS: OVALOCYTES 1+
--- NOTE | 2020-06-23 07:20 | NUR ---
Report given to CHITRA Rangel.
[2020-06-23] MEDS ORDERED: COUMADIN 6MG6 MG/TAB PO (09:15)
[2020-06-23] MEDS ORDERED: ZESTRIL 20MG TA20 MG PO (09:20)
[2020-06-23] MEDS ORDERED: MINOXIDIL 5% TD (09:21)
[2020-06-23] MEDS ORDERED: NITROSTAT0.4 MG/TAB SL (09:22)
[2020-06-23] MEDS ORDERED: PROTONIX20 MG PO (09:22)
[2020-06-23] MEDS ORDERED: ULTRAM 50MG TAB50 MG PO (09:22)
--- NOTE | 2020-06-23 14:10 | NUR ---
NOTIFIED DR STEEL THAT PT IS DOING GREAT ON TRACH COLLAR AND CAN HAVE FLOOR ORDERS DISCUSSED WITH CHITRA HAND EARLIER THIS AM. PHYSICIAN STATES HE WILL PLACE ORDERS AT SOME POINT. CHITRA HAND NOTIFIED.
[2020-06-23 16:15] LABS: ALBUMIN 3.7 gm/dL (3.5-5.0); CALCIUM 8.3 mg/dL (8.4-10.2); PHOSPHOROUS 3.6 mg/dL (2.5-4.5)
--- NOTE | 2020-06-23 18:30 | NUR ---
PATIENT ACCIDENTALLY PULLED NG TUBE OUT. IT IS REPLACED WITH 14F NG TUBE. SURGICAL CLIPS NOTED ON XRAY WHEN CONFIRMING PLACEMENT. WHEN ASKING PATIENT, SHE STATES SHE HAD A RADHA SHUNT PROCEDURE AT "A LONG TIME AGO." WILL CONFIRM WITH PHYSICIAN PRIOR TO USING NG TUBE THAT IT IS OK TO HAVE NG IN PLACE AND USED FOR TUBE FEEDS.
--- NOTE | 2020-06-23 19:45 | NUR ---
REPORT GIVEN TO RITCHIE RN
--- NOTE | 2020-06-23 20:12 | NUR ---
CALLED BOTH HOSPITALIST AND DR. POWELL FOLLOWING NOTICING THAT PATIENT HAS STOMACH SURGICAL CLIPS ON XRAY WHEN CONFIRMING NG PLACEMENT. I ASK IF IT IS OK TO HAVE NG IN PLACE AND TO USE SINCE THIS PATIENT HAS A HISTORY OF STOMACH SURGICAL PROCEDURE FOR WEIGHT LOSS. DR. POWELL GIVES RECOMMENDATION TO LEAVE NG IN PLACE AND HE WILL EVALUATE THE PLACEMENT ON XRAY IN THE MORNING AND GIVEN HIS RECOMMENDATION IF PATIENT CAN GET TUBE FEEDS THROUGH IT OR NOT. THIS IS COMMUNICATED WITH CARIDAD DAVENPORT HOSPITALIST WELL.
[2020-06-24] VITALS (685 sets, daily range): BP systolic 119–157; BP diastolic 65–78; PULSE 70–97; TEMP 98.3–99.2; O2SAT 84–100
[2020-06-24 05:06] LABS: MEAN CELL VOLUME 75 fl (80.0-100.0); MEAN CORPUSCULAR HGB CONC 30 g/dl (33.0-37.0); PLATELET COUNT 115 K/mm3 (130-400); RED BLOOD COUNT 4.19 M/mm3 (4.10-5.30); REDCELL DISTRIBUTION WIDTH-CV 16.5 % (11.5-14.5)
[2020-06-24 05:10] LABS: HEMATOCRIT 31.3 % (37.0-47.0); HEMOGLOBIN 9.4 g/dl (12.5-16.0); MEAN CORPUSCULAR HEMOGLOBIN 22 pg (27.0-31.0)
[2020-06-24 05:13] LABS: CALCIUM 8.5 mg/dL (8.4-10.2); CREATININE, serum 0.98 (0.52-1.25); PHOSPHOROUS 4.5 mg/dL (2.5-4.5); POTASSIUM 4.5 mmol/L (3.4-5.0)
[2020-06-24 05:43] LABS: BAND 1 % (0-10); NEUTROPHILS 98 % (42.0-75.2)
[2020-06-24 05:45] LABS: ANISOCYTOSIS 2+; HYPOCHROMIA 3+; MICROCYTOSIS 1+; SCHISTOCYTES 2+
[2020-06-24 05:46] LABS: OVALOCYTES 2+
--- NOTE | 2020-06-24 08:49 | NUR ---
SAW PT TODAY REGARDING NG TUBE AND TF. STATES OK TO START TRICKLE FEEDINGS AT 10ML/HR AND ADVANCE TO 25ML/HR TODAY, AND HE WILL REASSESS TOMORROW.
[2020-06-24 09:35] LABS: INR 1.3 (0.8-3.0); PROTHROMBIN TIME 14.2 SECONDS (9.7-12.8)
--- NOTE | 2020-06-24 11:41 | NUR ---
REPORT FROM SAVANA BUENROSTRO ICU.
--- NOTE | 2020-06-24 12:28 | NUR ---
REPORT GIVEN TO KHLOE BUENROSTRO ALL QUESTIONS ANSWERED. PT TRANSFERED UPSTAIRS WITH RT TO ROOM 324. UPDATES GIVEN TO KHLOE IN ROOM. WILL CALL PTS LULU LACKEY WITH NEW ROOM. PT'S BELONGINGS TRANSFERED WITH PT.
--- NOTE | 2020-06-24 12:54 | NUR ---
PT TRANSFERED TO RM 324 PER BED WITH REPORT FROM SAVANA RN AND BRIANNA RT. PT SET UP ON O2 PER TRACH @33%. NG TUBE FOR FEEDING RUNNING ON KANGAROO PUMP @10MLS/HR. OLIVARES CATHETER TO DD WITH CLEAR YELLOW URINE IN BAG. PICC LINE TO R UPPER ARM. CDI. SM STAGE 2 HEALED PRESSURE SORE. #6 CUFFED TRACH. INCREASE FEEDING FROM 10 MLS TO 25 MLS.
[2020-06-24 16:07] LABS: ALBUMIN 3.7 gm/dL (3.5-5.0); CALCIUM 8.4 mg/dL (8.4-10.2); PHOSPHOROUS 3.7 mg/dL (2.5-4.5)
--- NOTE | 2020-06-24 18:24 | NUR ---
INCREASED TRICKLE FEED RATE TO 25 MLS/HR VERIFIED WITH PATI MOORE
--- NOTE | 2020-06-24 21:00 | NUR ---
PT IN BED. IS ALERT AND ORIENTED X4. HAS NEW CUFFED TRACH, UNABLE TO SPEAK BUT UNDERSTANDS AND MOUTHS ANSWERS APPROPRIATELY. HAS RT PICC, FLUSHES WELL. HAS NGT TO RT NARE WITH TUBE FEEDING AT 25CC/HR. PLACEMENT CONFIRMED WITH AIR BOLUS. COUMADIN CRUSHED AND GIVEN PER NGT. HAS SL TO LEFT HAND, BRUISING NOTED. TRACH WITH SUTURES, OXYGEN PER TRACH COLLAR AT 33%. APPLIED LOTION TO DRY AND CRACKED FEET. SCDS ON AND OLIVARES PATENT.
[2020-06-25 04:18] VITALS: BP 112/76; PULSE 76; TEMP 97.8
--- NOTE | 2020-06-25 05:00 | NUR ---
PT HAVING LOOSE SECRETIONS AND APPEARS IN DISTRESS. RT NOTIFIED.
--- NOTE | 2020-06-25 05:02 | NUR ---
This RT was called to the floor at 0345 d/t pt having excessive secretions Sx was set up at bedside and pt was sx with 12 Fr sterile sx cath x2 3ccs of normal saline was instilled down #6Shiley and lavaged and sx for very little clear return Patient was on 33% Trach Collar and sat was 95% and above Patient was given a yankauer at bedside for any oral secretions she may have Pt nodded understanding of use of yankauer Inner cannula was taken out and checked for patency, cleaned, and reinserted to lock position. Skin was cleaned and sterile mepalex was placed under stoma for skin protection Drain spunge placed under trach collar as best as it would Sutures are in place and secure Patient auscultated for rhonchi and upper airway secretions Patient tolerated well
--- NOTE | 2020-06-25 05:41 | NUR ---
PT IS ALERT. HAS YANKEUR FOR SECRETIONS. IN NO APPARENT DISTRESS AT THIS TIME. LABS DRAWN FROM PICC.
[2020-06-25 06:37] LABS: INR 1.5 (0.8-3.0); PROTHROMBIN TIME 16.5 SECONDS (9.7-12.8)
[2020-06-25 07:58] VITALS: BP 151/87; PULSE 77; TEMP 98.2
--- NOTE | 2020-06-25 10:03 | NUR ---
YELENA contacted [facility] per Data Communications Engineer request regarding possibility of discharging to [facility] over the weekend. [facility] reported that they would be unable to transfer patient over the weekend. YELENA relayed this information to patient's RN. YELENA faxed records to [facility]. YELENA will follow up on Monday 06/26 and continue to follow.
--- NOTE | 2020-06-25 10:35 | NUR ---
PT A/O X3 WATCHING TV. NG TUBE FEEDING PROCEEDING ORDERED. NG VALVE CHANGED, AM MEDS CRUSHED AND GIVEN IN H2O. TRACH CARE PROVIDED BY RT. OLIVARES CATHETER TO DD. O2 PER TRACH @33% FIO2. PT TOLERTATING ALL PROCEEDURES WELL.
--- NOTE | 2020-06-25 11:22 | NUR ---
TUBE FEED CHANGED AND REPLACED TUBING. PT TOLERATED WELL.
--- NOTE | 2020-06-25 11:23 | NUR ---
PT HAVING INCREASING SECRETIONS. SUCTIONED WITH YOANNA EXTERNALLY, MODERATE RELIEF. CALLED RT FOR ASSISTANCE. BRIANNA RT PROVIDED SUCTION AND TRACH CARE.
[2020-06-25 12:07] VITALS: BP 156/63; PULSE 69; TEMP 98.5
[2020-06-25 13:24] LABS: ALBUMIN 3.5 gm/dL (3.5-5.0); CALCIUM 8.9 mg/dL (8.4-10.2); PHOSPHOROUS 3.4 mg/dL (2.5-4.5)
--- NOTE | 2020-06-25 13:26 | NUR ---
PT CLEANED UP AND THEN TRANSFERED TO RECLINER WITH ASSIST X2. PT TOLERATING WELL.
[2020-06-25 16:00] VITALS: BP 138/78; PULSE 92; TEMP 97.6
[2020-06-25 19:22] VITALS: BP 128/86; PULSE 102; TEMP 98
--- NOTE | 2020-06-25 20:40 | NUR ---
PT IN RESPIRATORY DISTRESS AND ANXIETY. MEDICATED WITH MORPHINE 1MG IVP AT THIS TIME. RT PICC FLUSHES WELL. OLIVARES PATENT TO BSD WITH YELLOW URINE. NGT APPEARS TO HAVE ADVANCED, TUBE FEEDING TURNED OFF.
--- NOTE | 2020-06-25 21:05 | NUR ---
CHECKED PLACEMENT OF NGT, NOT IN STOMACH. PT HAVING DIFFICULTY BREATHING, REMOVED NGT. PT THOUGHT DR THOMAS SAID IF NGT CAME OUT TO NOT REPLACE. DR THOMAS CALLED AT THIS TIME.
--- NOTE | 2020-06-25 21:13 | NUR ---
DR POWELL NOTIFIED OF NGT OUT, OKAY TO LEAVE OUT.
[2020-06-25 21:42] LABS: ARTERIAL BLD GAS TCO2 CT 27.8; ARTERIAL BLOOD GAS BASE EXCESS 3.4 (-2-2); ARTERIAL BLOOD GAS HCO3 26.7 meq/L (22-26); ARTERIAL BLOOD GAS PCO2 35.9 mmHg (35-45); ARTERIAL BLOOD GAS PO2 58.6 mmHg (80-100); ARTERIAL BLOOD GAS pH 7.49 (7.35-7.45)
--- NOTE | 2020-06-25 22:00 | NUR ---
PT REPORTS FEELING BETTER, NO LONGER IN RESPIRATORY DISTRESS. HAS SUCTION AT BEDSIDE FOR PT TO USE IF COUGHING UP SECRETIONS.
[2020-06-25 23:52] VITALS: BP 146/78; PULSE 54; TEMP 98
[2020-06-26 04:14] VITALS: BP 120/67; PULSE 90; TEMP 97.9
[2020-06-26 04:35] LABS: HEMOGLOBIN 10.8 g/dl (12.5-16.0); MEAN CELL VOLUME 73 fl (80.0-100.0); MEAN CORPUSCULAR HEMOGLOBIN 23 pg (27.0-31.0); MEAN CORPUSCULAR HGB CONC 31 g/dl (33.0-37.0); PLATELET COUNT 122 K/mm3 (130-400); RED BLOOD COUNT 4.77 M/mm3 (4.10-5.30); REDCELL DISTRIBUTION WIDTH-CV 15.9 % (11.5-14.5)
[2020-06-26 04:52] LABS: ALBUMIN 3.8 gm/dL (3.5-5.0); BILIRUBIN,TOTAL 1.2 mg/dL (0.0-1.0); CALCIUM 9.3 mg/dL (8.4-10.2); CREATININE, serum 0.83 (0.52-1.25); INR 1.4 (0.8-3.0); POTASSIUM 4.3 mmol/L (3.4-5.0); PROTHROMBIN TIME 15.2 SECONDS (9.7-12.8); TOTAL PROTEIN 6.3 gm/dL (6.4-8.2)
[2020-06-26 04:58] LABS: HEMATOCRIT 34.9 % (37.0-47.0); MEAN PLATELET VOLUME 11.2 fl (7.4-10.4)
--- NOTE | 2020-06-26 05:00 | NUR ---
HAS HAD NO FURTHER CONCERNS WITH RESPIRATORY DISTRESS. LABS DRAWN FROM PICC.
[2020-06-26 05:18] LABS: ANISOCYTOSIS 1+; BAND 5 % (0-10); HYPOCHROMIA 1+; LYMPHOCYTE 1 % (20.0-51.0); NEUTROPHILS 87 % (42.0-75.2); POIKILOCYTOSIS 1+
[2020-06-26 05:19] LABS: MICROCYTOSIS 1+; OVALOCYTES 1+; PLATELET ESTIMATE DECREASED (NORMAL)
[2020-06-26 07:51] VITALS: BP 140/86; PULSE 96; TEMP 97.8
[2020-06-26 11:25] VITALS: BP 135/85; PULSE 81; TEMP 98.2
--- NOTE | 2020-06-26 11:30 | NUR ---
Patient has been doing well this morning. Denies pain and nausea. Dressing to trach is clean and dry. Nguyen secured to leg, urine is straw colored and clear. She has her humidified air on to her trach. Spoke with her about the issues with nutrition and her medications. Explained that we have to wait until ST see her to see if she can eat or drink. She nodded in understanding. No other changes at this time. Call light within reach.
--- NOTE | 2020-06-26 15:42 | NUR ---
Unit Secy spoke with Constantino at [facility] and was advised they would likely be able to clinically meet patient's needs, however Constantino does not think they will have a bed for patient. YELENA contacted patient's son, Bryan to provide update. Bryan would like a referral sent to [facility] [place]. YELENA also spoke with Bryan about [facility] as patient has a new trach. Bryan states patient would really prefer to stay locally in [place]. YELENA advised she would send a referral to both [facility] and [place] as placement is recommended for patient. YELENA contacted Wendy at [facility] and faxed referral. YELENA also contacted Deann at [facility] to give referral. YELENA will continue to follow.
[2020-06-26 16:11] LABS: ALBUMIN 3.8 gm/dL (3.5-5.0); CALCIUM 8.8 mg/dL (8.4-10.2); PHOSPHOROUS 3.3 mg/dL (2.5-4.5)
[2020-06-26 16:18] VITALS: BP 132/69; PULSE 91; TEMP 98
--- NOTE | 2020-06-26 18:50 | NUR ---
Patient is doing well this afternoon. Pain well controlled. Denies nausea. She will have her swallow study redone tomorrow. She sat up in the chair most the afternoon. She was able to talk with her son this afternoon. No other changes at this time. Call light within reach.
--- NOTE | 2020-06-26 20:30 | NUR ---
Pt in bed. Is alert and oriented x4. Has trach intact with 33% oxygen to trach collar, few secretions. Applied lotion to feet. RT PICC intact, flushes well. Remains NPO, speech therapy to see patient again today for swallow eval.
[2020-06-26 20:47] VITALS: BP 158/76; PULSE 96; TEMP 98.1
[2020-06-27 00:09] VITALS: BP 141/76; PULSE 90; TEMP 97.7
[2020-06-27 04:19] VITALS: BP 143/73; PULSE 89; TEMP 97.5
--- NOTE | 2020-06-27 05:02 | NUR ---
Denies pain. Has rested well this shift.
[2020-06-27 07:48] LABS: INR 1.2 (0.8-3.0); PROTHROMBIN TIME 13.8 SECONDS (9.7-12.8)
[2020-06-27 07:51] LABS: HEMOGLOBIN 10.5 g/dl (12.5-16.0); MEAN CELL VOLUME 75 fl (80.0-100.0); MEAN CORPUSCULAR HEMOGLOBIN 23 pg (27.0-31.0); MEAN CORPUSCULAR HGB CONC 30 g/dl (33.0-37.0); MEAN PLATELET VOLUME 10.9 fl (7.4-10.4); PLATELET COUNT 126 K/mm3 (130-400); RED BLOOD COUNT 4.64 M/mm3 (4.10-5.30)
[2020-06-27 07:54] LABS: CALCIUM 8.1 mg/dL (8.4-10.2); CREATININE, serum 0.79 (0.52-1.25); POTASSIUM 4.3 mmol/L (3.4-5.0)
[2020-06-27 07:57] LABS: HEMATOCRIT 34.9 % (37.0-47.0)
[2020-06-27 08:00] VITALS: BP 145/80; PULSE 51; TEMP 98
[2020-06-27 09:31] LABS: ANISOCYTOSIS 1+; BAND 5 % (0-10); HYPOCHROMIA 2+; LYMPHOCYTE 8 % (20.0-51.0); NEUTROPHILS 81 % (42.0-75.2); OVALOCYTES 1+; PLATELET ESTIMATE DECREASED (NORMAL)
--- NOTE | 2020-06-27 11:00 | NUR ---
Patient is doing ok today. She went for her swallow studay. Dr Pena seen patient and put the cover for the trach on. Patient denies pain and nausea. She is moving around better in the room. No other changes at this time. Call light within reach.
[2020-06-27 11:23] VITALS: BP 148/83; PULSE 86; TEMP 98.1
[2020-06-27 16:00] VITALS: BP 139/85; PULSE 90; TEMP 97.5
--- NOTE | 2020-06-27 19:26 | NUR ---
Patient has been doing ok today. She has some drainage and bleeding after her swallow studay. Dr Pena wants the incision cleaned off but does not want gauze staying on the incision under the trach. Attempted to call Dr Pena earlier today about the plan for how long the trach is needed. He did not answer. Her glucose was 83, notified Sanam that her glucose is going down and that she has no IVF's and is strict NPO. She will check into it. No other changes at this time. Call light within reach.
--- NOTE | 2020-06-27 21:00 | NUR ---
Pt is pleasant with minimal complaints. States that her neck is a little sore, but does not need any medication. Nguyen in place with output. Pt does have a stage one pressure ulcer approximately the size of a dime to the right side of her coccyx. Mepilex applied and placed patient on her side. IVF started due to no oral intake. Explained this to the patient and she understood. No other needs, call light within reach, will continue to monitor.
[2020-06-27 21:50] VITALS: BP 142/57; PULSE 82; TEMP 97.6
[2020-06-28] VITALS (8 sets, daily range): BP systolic 112–154; BP diastolic 53–89; PULSE 70–100; TEMP 97.2–97.8
--- NOTE | 2020-06-28 02:30 | NUR ---
Pt awake resting in bed. States she is just not able to to sleep. No increase in pain. Acts as if she is not able to clear her throat well. Respiratory called at this time. Pt denies any other needs
--- NOTE | 2020-06-28 06:59 | NUR ---
Pt did well the rest of the night. Report given and no needs at this time
--- NOTE | 2020-06-28 07:15 | NUR ---
Lying in bed with eyes open. HOB elevated approx 75 degrees. Patient is alert and oriented x4. Trach in place and capped. Patient is able to whisper.Denies pain. Nguyen to dependent drainage. Patient denies needs or concerns at this time.
[2020-06-28 07:50] LABS: HEMOGLOBIN 10.6 g/dl (12.5-16.0); MEAN CELL VOLUME 77 fl (80.0-100.0); MEAN CORPUSCULAR HEMOGLOBIN 23 pg (27.0-31.0); MEAN CORPUSCULAR HGB CONC 30 g/dl (33.0-37.0); MEAN PLATELET VOLUME 11.5 fl (7.4-10.4); PLATELET COUNT 133 K/mm3 (130-400); RED BLOOD COUNT 4.68 M/mm3 (4.10-5.30); REDCELL DISTRIBUTION WIDTH-CV 16.2 % (11.5-14.5)
[2020-06-28 07:52] LABS: HEMATOCRIT 35.8 % (37.0-47.0)
[2020-06-28 08:00] LABS: CALCIUM 7.7 mg/dL (8.4-10.2); CREATININE, serum 0.75 (0.52-1.25); POTASSIUM 3.7 mmol/L (3.4-5.0)
[2020-06-28 09:39] LABS: BAND 3 % (0-10); LYMPHOCYTE 2 % (20.0-51.0); NEUTROPHILS 90 % (42.0-75.2); OVALOCYTES 2+; PLATELET ESTIMATE NORMAL (NORMAL)
--- NOTE | 2020-06-28 10:18 | NUR ---
Patient sitting up in bed watching TV. Denies pain or needs at this time.
--- NOTE | 2020-06-28 11:40 | NUR ---
Patient lying in bed watching TV. Denies pain. Requests to call son. This nurse calls son and puts him on speaker phone. Patient able to whisper out words to son. Son able to hear and conversate back to the patient. Talk with the patient son regarding how patient was doing today. Son verbalizes understanding. Patient denies additional needs at this time.
--- NOTE | 2020-06-28 13:35 | NUR ---
Patient tearful in bed. Just finished talking with the doctor. Patient says that she just wants to go home. Reassurance provided to the patient. Patient would like to get in recliner at this time. Assisted into recliner with assist of one. Patient transfers well with use of cane. Fresh water provided for patient to use to swab on her lips. Patient denies additional needs at this time.
--- NOTE | 2020-06-28 14:57 | NUR ---
Still sitting up in chair. Warm blanket provided per patient request. Patient would like to still sit up in chair. Denies additional needs at this time.
--- NOTE | 2020-06-28 17:17 | NUR ---
Patient lying in bed watching TV. Denies pain. Provided fresh ice water in cup for patient to use with swabs to swab lips. Patient denies additional needs or concerns at this time.
--- NOTE | 2020-06-28 21:52 | NUR ---
NOTED LARGE SWOLLEN AREA TO RIGHT ABD. PT UNSURE WHAT IT IS, REPORTS ITS PAINFUL.
[2020-06-29] VITALS (466 sets, daily range): BP systolic 61–149; BP diastolic 25–105; PULSE 90–160; TEMP 96–98.2; O2SAT 61–100
--- NOTE | 2020-06-29 03:51 | NUR ---
B/P LOW 80/47. RECHECKED MANUALLY WITH RESULT OF 78/46.
--- NOTE | 2020-06-29 04:01 | NUR ---
NOTIFIED KALEIGH MCLEAN OF PTS LOW B/P AND SWOLLEN AREA TO ABD. NEW ORDERS. INITIATED NS BOLUS OF 500CC AT THIS TIME. KALEIGH MCLEAN IN ROOM WITH PATIENT.
--- NOTE | 2020-06-29 05:15 | NUR ---
TO CT PER W/C.
--- NOTE | 2020-06-29 05:45 | NUR ---
RETURNS FROM CT PER CART. TO BED WITH 2 ASSIST. B/P93/41.
[2020-06-29 07:35] LABS: MEAN CELL VOLUME 77 fl (80.0-100.0); MEAN CORPUSCULAR HGB CONC 30 g/dl (33.0-37.0); MEAN PLATELET VOLUME 11.5 fl (7.4-10.4); RED BLOOD COUNT 3.22 M/mm3 (4.10-5.30); REDCELL DISTRIBUTION WIDTH-CV 16.3 % (11.5-14.5)
--- NOTE | 2020-06-29 08:00 | NUR ---
Patient received to ICU room 8. She is very pale and lethargic appearing. She responds appropriately to her name and orientation questions. Assessment completed. Right lower quadrant shows large area of hematoma, as evidenced on CT abdomen recently. it is outlined in pen and has grown since marked. VS show afib tachycardia and hypotension.. Dr. Hernandez called to notify of arrival and to get orders. IVF bolus infusing. Dr. Araiza on unit and notified of situation. He comes to see patient.
[2020-06-29 08:09] LABS: HEMATOCRIT 24.7 % (37.0-47.0); MEAN CORPUSCULAR HEMOGLOBIN 23 pg (27.0-31.0); PLATELET COUNT 284 K/mm3 (130-400)
[2020-06-29 08:11] LABS: HEMOGLOBIN 7.3 g/dl (12.5-16.0)
--- NOTE | 2020-06-29 08:22 | NUR ---
Shift report received per CHITRA Noriega. Throughout the night patient became hypotensive, remains hypotensive this a.m. CT scan results given to CARIDAD Curtis. Orders received for NS fluid bolus and transfer to ICU. Patient son and Dr Pena updated on transfer and patient status. Report given to QUINN Shaver RN. Patient transferred to ICU at 0815.
[2020-06-29 08:56] LABS: HYPERSEGMENTED POLYS PRESENT; HYPOCHROMIA 3+; LYMPHOCYTE 1 % (20.0-51.0); METAMYELOCYTE 2 % (0-0); NEUTROPHILS 95 % (42.0-75.2); PLATELET ESTIMATE NORMAL (NORMAL)
[2020-06-29 08:57] LABS: ANISOCYTOSIS 1+; OVALOCYTES 1+; POIKILOCYTOSIS 1+
[2020-06-29 09:13] LABS: INR 1.5 (0.8-3.0); PROTHROMBIN TIME 16.4 SECONDS (9.7-12.8)
[2020-06-29 09:39] LABS: ALBUMIN 2.7 gm/dL (3.5-5.0); BILIRUBIN,TOTAL 0.7 mg/dL (0.0-1.0); CALCIUM 6.4 mg/dL (8.4-10.2); CREATININE, serum 0.95 (0.52-1.25); POTASSIUM 3.5 mmol/L (3.4-5.0); TOTAL PROTEIN 4.7 gm/dL (6.4-8.2)
[2020-06-29 12:17] LABS: HEMATOCRIT 27.5 % (37.0-47.0); HEMOGLOBIN 8.6 g/dl (12.5-16.0)
--- NOTE | 2020-06-29 12:43 | NUR ---
Lab Aide faxed updates to [facility]. Patient transferred down to the ICU at this time.
--- NOTE | 2020-06-29 13:55 | NUR ---
HEMATOMA ON RLQ OUTLINED AGAIN. DR. JASMINE GIVEN UPDATES THROUGHTOUT THE SHIFT.
[2020-06-29 14:04] LABS: ARTERIAL BLD GAS O2 SATURATION 95.3 % (92-100); ARTERIAL BLD GAS TCO2 CT 15.4; ARTERIAL BLOOD GAS BASE EXCESS -10.6 (-2-2); ARTERIAL BLOOD GAS HCO3 14.5 meq/L (22-26); ARTERIAL BLOOD GAS PCO2 29.6 mmHg (35-45); ARTERIAL BLOOD GAS PO2 80.9 mmHg (80-100); ARTERIAL BLOOD GAS pH 7.31 (7.35-7.45)
[2020-06-29 14:27] LABS: ALBUMIN 2.6 gm/dL (3.5-5.0); BILIRUBIN UNCONJUGATED 0.7 mg/dL (0.0-1.1); BILIRUBIN,DIRECT 0.2 mg/dL (0.0-0.4); BILIRUBIN,TOTAL 0.9 mg/dL (0.0-1.0); CALCIUM 6.4 mg/dL (8.4-10.2); CREATININE, serum 1.03 (0.52-1.25); POTASSIUM 3.8 mmol/L (3.4-5.0); TOTAL PROTEIN 4.6 gm/dL (6.4-8.2)
[2020-06-29 17:29] LABS: ARTERIAL BLD GAS O2 SATURATION 96.4 % (92-100); ARTERIAL BLD GAS TCO2 CT 22.4; ARTERIAL BLOOD GAS BASE EXCESS -3.2 (-2-2); ARTERIAL BLOOD GAS HCO3 21.3 meq/L (22-26); ARTERIAL BLOOD GAS PCO2 35.6 mmHg (35-45); ARTERIAL BLOOD GAS PO2 82.4 mmHg (80-100); ARTERIAL BLOOD GAS pH 7.39 (7.35-7.45)
--- NOTE | 2020-06-29 17:30 | NUR ---
REPORT GIVEN TO ST. SULLY BUENROSTRO. LIFE 140 Proof FLIGHT CREW ARRIVES AT THIS TIME.
[2020-06-29 17:35] LABS: HEMATOCRIT 24.9 % (37.0-47.0); HEMOGLOBIN 8.2 g/dl (12.5-16.0)
--- NOTE | 2020-06-29 18:15 | NUR ---
PATIENT LEAVES WITH [employer] FLIGHT CREW AT THIS TIME. [facility] UPDATED.
--- NOTE | 2020-06-29 18:15 | NUR ---
DR. THOMAS CALLS AND GIVES ORDER TO REMOVE THE 3 SUTURES HOLDING HER TRACH IN PLACE. SUTURES REMOVED WITHOUT ISSUE.
--- NOTE | 2020-06-29 18:30 | NUR ---
BY THE TIME PATIENT LEFT WITH LIFESTAR, SHE WAS ON LEVOPHED AT 0.15 MCG/KG/MIN, AMIODARONE AT 0.5 MG/MIN, AND NS AT 75 CC/HR. VASOPRESSIN HAD BEEN WEANED OFF AND ALL BLOOD PRODUCTS INFUSED PER PHYSICIAN ORDERS.
--- NOTE | 2020-06-29 19:01 | NUR ---
BELONGINGS PLACED IN BOTTOM CABINET, BLUE OVERNIGHT BAG, CANE, AND ONE BELONGINGS BAG IN DIRTY UTILITY ROOM.
== END 2020-06-29 18:30 | disposition short-term general hospital (02) | DRG 4 ==
LOC: ICU 16:30 → SURG 06-24 12:39 → ICU 06-29 08:43
PROVIDERS: Hospitalist; Internal Medicine Pulmonary Disease; Physician Assistant; Specialist; Student in an Organized Health Care Education/Training Program; ADMIT Internal Medicine
PROC: 0BH17EZ Insertion of Endotracheal Airway into Trachea, Via Natural or Artificial Opening (ICD-10-PCS; principal; 2020-06-21)
PROC: 5A1945Z Respiratory Ventilation, 24-96 Consecutive Hours (ICD-10-PCS; 2020-06-21)
PROC: 0B110F4 Bypass Trachea to Cutaneous with Tracheostomy Device, Open Approach (ICD-10-PCS; 2020-06-22)
PROC: 02HV33Z Insertion of Infusion Device into Superior Vena Cava, Percutaneous Approach (ICD-10-PCS; 2020-06-22)
DX: J96.01 Acute respiratory failure with hypoxia (principal); I50.32 Chronic diastolic (congestive) heart failure; I48.20 Chronic atrial fibrillation, unspecified; D62 Acute posthemorrhagic anemia; J38.01 Paralysis of vocal cords and larynx, unilateral; C73 Malignant neoplasm of thyroid gland; I27.20 Pulmonary hypertension, unspecified; I11.0 Hypertensive heart disease with heart failure; I08.3 Combined rheumatic disorders of mitral, aortic and tricuspid valves; R13.10 Dysphagia, unspecified; M19.90 Unspecified osteoarthritis, unspecified site; K59.00 Constipation, unspecified; E83.51 Hypocalcemia; F32.9 Major depressive disorder, single episode, unspecified; Z79.01 Long term (current) use of anticoagulants; Z96.659 Presence of unspecified artificial knee joint; Z87.891 Personal history of nicotine dependence; Z96.642 Presence of left artificial hip joint; Z98.84 Bariatric surgery status; Z88.0 Allergy status to penicillin
CPT/HCPCS: 99223-AI; 99232-AI; 99233-AI; A4314; A7520; A7521; C1751; C1892; C9113; J0282; J0610; J0692; J1650; J2060; J2250; J2270; J2405; J2704; J2720; J2920; J3010; J3430; J7030; J7040; J7060; J7070; J7120; P9016; P9040; Q9967